=== PATIENT | male | born 1980 | race African-American/Black ===

== ENCOUNTER 2017-06-12 09:23 | Emergency (ER) | payer MEDICAID ==
[~2017-06-12] VITALS: Ht 175.3 cm; Wt 88.0 kg
[2017-06-12 09:26] VITALS: BP 143/80
== END 2017-06-12 10:00 | disposition home or self-care (01) ==
LOC: ER 09:23
DX: I10 Essential (primary) hypertension (principal); Z76.0 Encounter for issue of repeat prescription; J45.909 Unspecified asthma, uncomplicated

== ENCOUNTER 2017-06-18 08:51 | Emergency (ER) | payer MEDICAID ==
[~2017-06-18] VITALS: Ht 175.3 cm; Wt 86.6 kg
[2017-06-18 09:06] VITALS: BP 151/71
[2017-06-18] MEDS ORDERED: cefTRIAXone SOD 1,000 MG VL IM ONE (10:30)
== END 2017-06-18 10:59 | disposition home or self-care (01) ==
LOC: ER 08:51
DX: J18.9 Pneumonia, unspecified organism (principal); J03.90 Acute tonsillitis, unspecified; J45.909 Unspecified asthma, uncomplicated; I10 Essential (primary) hypertension
CPT/HCPCS: 71046; 96372; 99284; J0696